=== PATIENT | male | born 1980 | race American Indian/Alaskan Native ===

== ENCOUNTER 2019-03-17 22:06 | Emergency (ER) | payer OTHER ==
[2019-03-17] MEDS ORDERED: AZITHROMYCIN 1 GM ORAL PWDR PACKET PO ONE (23:30)
[2019-03-17] MEDS ORDERED: LIDOCAINE-MPF (1%) 10 MG/1 ML VIAL 5 ML INFILTRATI ONE (23:30)
[2019-03-17] MEDS ORDERED: ACETAMINOPHEN 500 MG TAB PO ONE (23:31)
[2019-03-17] MEDS ORDERED: IBUPROFEN 600 MG TAB PO ONE (23:31)
[2019-03-17] MEDS ORDERED: ONDANSETRON 4 MG ODT TAB PO ONE (23:31)
[2019-03-18 00:06] LABS: Bilirubin,Urine NEG (Negative); Blood,Urine NEG (Negative); Color,Urine Yellow (Yellow); Mucus,Urine FEW /HPF; Protein,Urine <15 mg/dL mg/dL (Negative); Urobilinogen,Urine < 2.0 mg/dL (<2.0)
--- NOTE | 2019-03-18 00:33 | Emergency Department Report ---
ED General Adult HPI - General Chief complaint: Headache Stated complaint: MIGRAIN/BLURRED VISION/IRRITAION IN URINATION Source: patient Mode of arrival: Ambulatory Limitations: No Limitations - History of Present Illness Initial comments: Patient is a 38-year-old male with no past medical history presents to the ED with complaint of acute onset persistent painful swollen and fluctuant or rashes on the scalp for the last 1 month worse in the last 1 week. Patient was complaints of headache as a result of the rashes on his scalp. Patient also complains of dysuria, urinary frequency and urgency, and penile discharge. Patient denies fever, chills, nausea, vomiting, dizziness, syncope, chest pain or shortness of breath, hematuria or testicular pain, abdominal pain, or headache and sore throat. MD Complaint: Painful swollen scalp rashes; Dysuria and penile discharge; headache -: Sudden, month(s) (1) Location: head, genitals Radiation: non-radiation Severity scale (0 -10): 7 Quality: aching, sharp Consistency: constant Improves with: none Worsens with: none Associated Symptoms: denies other symptoms, headaches, rash (diffuse painful swollen maculopapular rashes on the scalp). denies: confusion, chest pain, cough, diaphoresis, fever/chills, loss of appetite, malaise, nausea/vomiting, seizure, shortness of breath, syncope, weakness Treatments Prior to Arrival: none - Related Data Previous Rx's Medication Instructions Recorded Last Taken Type DOXYCYCLINE Hyclate [Vibramycin 100 mg PO Q12HR #28 capsule 03/18/19 Unknown Rx CAP] Ibuprofen [Motrin] 800 mg PO Q8HR PRN #30 tablet 03/18/19 Unknown Rx Sulfamethoxazole/Trimethoprim 1 each PO Q12H #20 tablet 03/18/19 Unknown Rx [Bactrim DS TAB] Allergies Allergy/AdvReac Type Severity Reaction Status Date / Time No Known Allergies Allergy Unverified 03/17/19 22:31 ED Review of Systems ROS: Stated complaint: MIGRAIN/BLURRED VISION/IRRITAION IN URINATION Other details as noted in HPI Constitutional: denies: chills, fever Eyes: denies: eye pain, eye discharge, vision change ENT: denies: ear pain, throat pain Respiratory: denies: cough, shortness of breath, wheezing Cardiovascular: denies: chest pain, palpitations Endocrine: no symptoms reported Gastrointestinal: denies: abdominal pain, nausea, diarrhea Genitourinary: urgency, dysuria, discharge Musculoskeletal: myalgia. denies: back pain, joint swelling, arthralgia Skin: rash (Multiple erythematous maculopapular rashes with tenderness on parietal scalp), change in color. denies: lesions, change in hair/nails, pruritus Neurological: headache. denies: weakness, paresthesias Psychiatric: denies: anxiety, depression Hematological/Lymphatic: denies: easy bleeding, easy bruising ED Past Medical Hx - Past Medical History Previous Medical History?: No - Surgical History Past Surgical History?: No - Social History Smoking Status: Never Smoker Substance Use Type: None - Medications Home Medications: Home Medications Medication Instructions Recorded Confirmed Last Taken Type DOXYCYCLINE Hyclate [Vibramycin 100 mg PO Q12HR #28 capsule 03/18/19 Unknown Rx CAP] Ibuprofen [Motrin] 800 mg PO Q8HR PRN #30 tablet 03/18/19 Unknown Rx Sulfamethoxazole/Trimethoprim 1 each PO Q12H #20 tablet 03/18/19 Unknown Rx [Bactrim DS TAB] ED Physical Exam - General Limitations: No Limitations General appearance: alert, in no apparent distress - Head Head exam: Present: atraumatic, normocephalic, normal inspection, other (palpable tenderness all parietal scalp due to multiple erythematous swollen nonfluctuant rashes) - Eye Eye exam: Present: normal appearance, PERRL, EOMI Pupils: Present: normal accommodation - ENT ENT exam: Present: normal exam, normal orophraynx, mucous membranes moist, TM's normal bilaterally, normal external ear exam - Neck Neck exam: Present: normal inspection, full ROM - Respiratory Respiratory exam: Present: normal lung sounds bilaterally. Absent: respiratory distress, wheezes, rales, chest wall tenderness, accessory muscle use, decreased breath sounds - Cardiovascular Cardiovascular Exam: Present: regular rate, normal rhythm, normal heart sounds. Absent: systolic murmur, diastolic murmur, rubs, gallop - GI/Abdominal GI/Abdominal exam: Present: soft, normal bowel sounds. Absent: tenderness, guarding, hyperactive bowel sounds, hypoactive bowel sounds - Extremities Exam Extremities exam: Present: normal inspection, full ROM, normal capillary refill - Back Exam Back exam: Present: normal inspection, full ROM. Absent: tenderness, muscle spasm, paraspinal tenderness - Neurological Exam Neurological exam: Present: alert, oriented X3, CN II-XII intact, normal gait, reflexes normal - Psychiatric Psychiatric exam: Present: normal affect, normal mood - Skin Skin exam: Present: warm, dry, intact, normal color, rash (multiple erythematous maculopapular nontransient rashes on parietal scalp with tenderness and swelling), erythema, vesicles ED Course Vital Signs 03/17/19 03/17/19 22:16 22:28 Temperature 98.6 F 98.6 F Pulse Rate 89 87 Respiratory 18 20 Rate Blood Pressure 148/101 148/101 O2 Sat by Pulse 97 98 Oximetry ED Medical Decision Making - Medical Decision Making This is a 38-year-old male with no past medical history presented to the ED with dysuria, urinary frequency and urgency, penile discharge as well as painful swollen erythematous maculopapular nonfluctuant rashes on the parietal scalp. In the ED, patient is alert and oriented 3 and is not in distress. Urinalysis shows significant white blood cells in the urine consistent with sexually transmitted disease in the patient's risky sexual lifestyle. Patient was treated in the ED empirically for chlamydia and gonorrhea and discharged home on antibiotics for acute folliculitis. Patient was discharged home on referred to the [facility] Department for further evaluation and testing of STDs. Patient was advised to return to the ED immediately if symptoms get worse. - Differential Diagnosis Folliculitis; Abscess; Cellulitis; STD; UTI Critical care attestation.: If time is entered above; I have spent that time in minutes in the direct care of this critically ill patient, excluding procedure time. ED Disposition Clinical Impression: Acute folliculitis, Cellulitis of scalp, STD (sexually transmitted disease), Urethritis, unspecified, Acute urinary tract infection Disposition: DC-01 TO HOME OR SELFCARE Is pt being admited?: No Does the pt Need Aspirin: No Condition: Stable Instructions: Nonspecific Urethritis in Men (ED), Folliculitis (ED), Cellulitis (ED), Sexually Transmitted Diseases (ED), Safe Sex (ED) Additional Instructions: Take medications with food, drink plenty of fluids and follow-up with the [facility] Department for further evaluation and testing. Return to the ED immediately if symptoms get worse. Prescriptions: Sulfamethoxazole/Trimethoprim [Bactrim DS TAB] 1 each PO Q12H #20 tablet Ibuprofen [Motrin] 800 mg PO Q8HR PRN #30 tablet PRN Reason: Pain , Severe (7-10) DOXYCYCLINE Hyclate [Vibramycin CAP] 100 mg PO Q12HR #28 capsule Referrals: [facility] Depart [Outside] - 3-5 Days Forms: STI Treatment and Prevention Time of Disposition: 00:40 Print Language: LUXEMBOURGISH
[2019-03-18 01:34] VITALS: BP 141/98
== END 2019-03-18 01:32 | disposition home or self-care (01) ==
LOC: ED 22:06
DX: L03.811 Cellulitis of head [any part, except face] (principal); L73.9 Follicular disorder, unspecified; A64 Unspecified sexually transmitted disease; N39.0 Urinary tract infection, site not specified; N34.2 Other urethritis; Z79.899 Other long term (current) drug therapy
CPT/HCPCS: 81001; 87086; 87591; 96372; 99283; J0696; Q0162

== ENCOUNTER 2021-09-16 15:36 | Emergency (ER) | payer OTHER ==
[2021-09-16] MEDS ORDERED: ASPIRIN 325 MG TAB PO ONE (16:02)
--- NOTE | 2021-09-16 16:33 | XRay Report ---
XR chest routine 2V INDICATION / CLINICAL INFORMATION: chest pain. COMPARISON: None available. FINDINGS: SUPPORT DEVICES: None. HEART /PULMONARY VASCULATURE: No significant abnormality. LUNGS / PLEURA: No significant pulmonary or pleural abnormality. No pneumothorax. ADDITIONAL FINDINGS: No significant additional findings. IMPRESSION: 1. No acute findings. Signer Name: Arslan Blue MD Signed: 09/16/2021 4:29 PM Workstation Name: [id number]
[2021-09-16 16:39] LABS: Basophils % (Auto) 0.8 % (0.0-1.8); Eosinophils # (Auto) 0.2 K/mm3 (0.0-0.4); Eosinophils % (Auto) 3.4 % (0.0-4.3); Hematocrit 47.4 % (35.5-45.6); Hemoglobin 15.7 gm/dl (11.8-15.2); Lymphocytes # (Auto) 2.1 K/mm3 (1.2-5.4); Lymphocytes % (Auto) 39.2 % (13.4-35.0); Mean Corpuscular HGB Conc 33 % (32-34); Mean Corpuscular Volume 79 fl (84-94); Monocytes # (Auto) 0.5 K/mm3 (0.0-0.8); Monocytes % (Auto) 9.2 % (0.0-7.3); Platelet Count 128 K/mm3 (140-440); Red Blood Count 5.99 M/mm3 (3.65-5.03); Red Cell Distribution Width 14.1 % (13.2-15.2)
[2021-09-16 17:02] LABS: Alanine Aminotransferase 40 units/L (7-56); Albumin 4.3 g/dL (3.9-5); BUN/Creatinine Ratio 11; Blood Urea Nitrogen 11 mg/dL (9-20); Calcium 9.4 mg/dL (8.4-10.2); Hemolysis Index 7
[2021-09-16] MEDS ORDERED: SODIUM CHLORIDE 0.9% 1000 ML 1,000 ML IV ONE ×2 (20:11→22:10)
[2021-09-16 20:25] LABS: Bilirubin,Urine NEG (Negative); Blood,Urine NEG (Negative); Color,Urine Straw (Yellow); Protein,Urine <15 mg/dL mg/dL (Negative); Urobilinogen,Urine < 2.0 mg/dL (<2.0)
[2021-09-16 20:32] LABS: Bacteria,Urine 1+ /HPF (Negative)
--- NOTE | 2021-09-16 21:05 | Emergency Department Report ---
ED General Adult HPI - General Chief complaint: Chest Pain Stated complaint: CHEST PAIN,BURNING URINE X 3 DAYS Time Seen by Provider: 09/16/21 20:03 Source: patient Mode of arrival: Ambulatory Limitations: No Limitations - History of Present Illness Initial comments: Pt Is a 41-year-old male with history of obesity, who presents for right lower chest pain for 1 year and more recent urinary frequency urgency urgency and dysuria times the past week. Patient denies fevers or chills there is no hematuria. Patient endorses no concern for STI. Patient has no history of renal stones. Patient denies history of hypertension or diabetes. - Related Data Previous Rx's Medication Instructions Recorded Last Taken Type Ibuprofen [Motrin] 800 mg PO Q8HR PRN #30 tablet 03/18/19 Unknown Rx Sulfamethoxazole/Trimethoprim 1 each PO Q12H #20 tablet 03/18/19 Unknown Rx [Bactrim DS TAB] DOXYCYCLINE Hyclate [Vibramycin 100 mg PO BID 7 Days #14 capsule 09/17/21 Unknown Rx CAP] metFORMIN [Glucophage] 500 mg PO BID #30 tab 09/17/21 Unknown Rx Allergies Allergy/AdvReac Type Severity Reaction Status Date / Time No Known Allergies Allergy Verified 09/16/21 20:04 ED Review of Systems ROS: Stated complaint: CHEST PAIN,BURNING URINE X 3 DAYS Other details as noted in HPI Constitutional: denies: chills, fever Eyes: denies: eye pain, eye discharge, vision change ENT: denies: ear pain, throat pain Respiratory: denies: cough, shortness of breath, wheezing Cardiovascular: chest pain. denies: palpitations, dyspnea on exertion, edema, paroxysmal nocturnal dyspnea Endocrine: no symptoms reported Gastrointestinal: denies: abdominal pain, nausea, vomiting, diarrhea Genitourinary: urgency, dysuria, frequency. denies: hematuria, discharge, testicular pain, testicular mass Musculoskeletal: denies: back pain, joint swelling, arthralgia Skin: denies: rash, lesions Neurological: denies: headache, weakness, paresthesias Psychiatric: denies: anxiety, depression Hematological/Lymphatic: denies: easy bleeding, easy bruising ED Past Medical Hx - Social History Smoking Status: Never Smoker Substance Use Type: None - Medications Home Medications: Home Medications Medication Instructions Recorded Confirmed Last Taken Type Ibuprofen [Motrin] 800 mg PO Q8HR PRN #30 tablet 03/18/19 Unknown Rx Sulfamethoxazole/Trimethoprim 1 each PO Q12H #20 tablet 03/18/19 Unknown Rx [Bactrim DS TAB] DOXYCYCLINE Hyclate [Vibramycin 100 mg PO BID 7 Days #14 capsule 09/17/21 Unknown Rx CAP] metFORMIN [Glucophage] 500 mg PO BID #30 tab 09/17/21 Unknown Rx ED Physical Exam - General Limitations: No Limitations General appearance: alert, in no apparent distress - Head Head exam: Present: atraumatic, normocephalic - Eye Eye exam: Present: EOMI Pupils: Present: normal accommodation - ENT ENT exam: Present: mucous membranes moist - Neck Neck exam: Present: normal inspection, full ROM. Absent: tenderness, lymphadenopathy - Respiratory Respiratory exam: Present: normal lung sounds bilaterally. Absent: respiratory distress, wheezes, stridor, chest wall tenderness - Cardiovascular Cardiovascular Exam: Present: regular rate, normal rhythm, normal heart sounds. Absent: systolic murmur, diastolic murmur, rubs, gallop - GI/Abdominal GI/Abdominal exam: Present: soft, normal bowel sounds. Absent: distended, tenderness, guarding, rebound, rigid, bruit, hernia - Rectal Rectal exam: Present: deferred - Extremities Exam Extremities exam: Present: normal inspection, full ROM, normal capillary refill. Absent: tenderness, pedal edema - Back Exam Back exam: Present: normal inspection, full ROM. Absent: CVA tenderness (R), CVA tenderness (L) - Neurological Exam Neurological exam: Present: alert, oriented X3, CN II-XII intact, normal gait - Expanded Neurological Exam Expanded Patient oriented to: Present: person, place, time Speech: Present: fluid speech Best Eye Response (Sindy): (4) open spontaneously Best Motor Response (Sindy): (6) obeys commands Best Verbal Response (Sindy): (5) oriented [place] Total: 15 - Psychiatric Psychiatric exam: Present: normal affect, normal mood - Skin Skin exam: Present: warm, dry, intact, normal color. Absent: rash ED Course Vital Signs 09/16/21 15:59 Temperature 98 F Pulse Rate 95 H Respiratory 16 Rate Blood Pressure 135/91 [Left] O2 Sat by Pulse 95 Oximetry ED Medical Decision Making - Lab Data Result diagrams: 09/16/21 16:29 09/16/21 16:29 Labs 09/16/21 09/16/21 09/16/21 16:29 16:29 19:25 WBC 5.4 RBC 5.99 H Hgb 15.7 H Hct 47.4 H MCV 79 L MCH 26 L MCHC 33 RDW 14.1 Plt Count 128 L Lymph % (Auto) 39.2 H [place] % (Auto) 9.2 H Eos % (Auto) 3.4 Baso % (Auto) 0.8 Lymph # (Auto) 2.1 [place] # (Auto) 0.5 Eos # (Auto) 0.2 Baso # (Auto) 0.0 Seg Neutrophils % 47.4 Seg Neutrophils # 2.6 Sodium 134 L Potassium 4.1 Chloride 99.0 Carbon Dioxide 23 Anion Gap 16 BUN 11 Creatinine 1.0 Estimated GFR > 60 BUN/Creatinine Ratio 11 Glucose 348 H POC Glucose Calcium 9.4 Total Bilirubin 0.40 AST 22 ALT 40 Alkaline Phosphatase 180 H Troponin T < 0.010 < 0.010 Total Protein 7.2 Albumin 4.3 Albumin/Globulin Ratio 1.5 Urine Color Urine Turbidity Urine pH Ur Specific [place] Urine Protein Urine Glucose (UA) Urine Ketones Urine Blood Urine Nitrite Urine Bilirubin Urine Urobilinogen Ur Leukocyte Esterase Urine WBC (Auto) Urine RBC (Auto) U Epithel Cells (Auto) Urine Bacteria (Auto) 09/16/21 09/16/21 22:07 Unknown WBC RBC Hgb Hct MCV MCH MCHC RDW Plt Count Lymph % (Auto) [place] % (Auto) Eos % (Auto) Baso % (Auto) Lymph # (Auto) [place] # (Auto) Eos # (Auto) Baso # (Auto) Seg Neutrophils % Seg Neutrophils # Sodium Potassium Chloride Carbon Dioxide Anion Gap BUN Creatinine Estimated GFR BUN/Creatinine Ratio Glucose POC Glucose 427 H Calcium Total Bilirubin AST ALT Alkaline Phosphatase Troponin T Total Protein Albumin Albumin/Globulin Ratio Urine Color Straw Urine Turbidity Clear Urine pH 5.0 Ur Specific [place] 1.036 H Urine Protein <15 mg/dl Urine Glucose (UA) >=500 Urine Ketones Tr Urine Blood Neg Urine Nitrite Neg Urine Bilirubin Neg Urine Urobilinogen < 2.0 Ur Leukocyte Esterase Tr Urine WBC (Auto) 3.0 Urine RBC (Auto) 1.0 U Epithel Cells (Auto) < 1.0 Urine Bacteria (Auto) 1+ - EKG Data EKG shows normal: sinus rhythm, axis, intervals, QRS complexes, ST-T waves Rate: normal - EKG Data When compared to previous EKG there are: previous EKG unavailable Interpretation: normal EKG (Normal sinus rhythm no ST elevated [place] interpreted by ED attending.) - Radiology Data Radiology results: report reviewed, image reviewed XR chest routine 2V INDICATION / CLINICAL INFORMATION: chest pain. COMPARISON: None available. FINDINGS: SUPPORT DEVICES: None. HEART /PULMONARY VASCULATURE: No significant abnormality. LUNGS / PLEURA: No significant pulmonary or pleural abnormality. No pneumothorax. ADDITIONAL FINDINGS: No significant additional findings. IMPRESSION: 1. No acute findings. Signer Name: Mic Yoder MD Signed: 09/16/2021 4:29 PM Workstation Name: [id number] Transcribed By: HANK Dictated By: MIC YODER MD Electronically Authenticated By: MIC YODER MD Signed Date/Time: 09/16/211628 DD/ 28 TD/TT: - Medical Decision Making Pt Is a 41-year-old male with history of obesity, who presents for right lower chest pain for 1 year and more recent urinary frequency urgency urgency and dysuria times the past week. Patient denies fevers or chills there is no hematuria. Patient endorses no concern for STI. Patient has no history of renal stones. Patient denies history of hypertension or diabetes. Heart score is 0. MAURIZIO score is 0. EKG normal sinus rhythm no ST elevated [place] interpreted by ED attending. Chest x-ray normal no infiltrates no opacities. Labs noted as above concerning for glucose at 3 4 8 mg a deciliter. Plan normal saline 1 L IV x1 await UA results. Recheck Accu-Chek after IV fluids completion. Noted Accu-Chek at 427, patient given second liter normal saline, Insulin 7 units IV, venous PH, will recheck after slightly but still elevated will admit for Onset diabetes, Repeat Accu-Chek 249 mg/dl, pt states he feels much better now. Plan given elevated blood glucose we will start metformin p.o. twice daily have discussed this with patient possibility of new onset diabetes. However there are no polys. No nausea no vomiting no fever no chills. Intermittent chest pain in 1 year and not likely relevant to symptoms. EKG is normal sinus rhythm no ST elevated [place] interpreted by ED attending, troponins are negative. Heart score 0. DC to home, take medications as prescribed, follow-up with primary care doctor in 2 to 3 days. Return to emergency department should symptoms worsen. Patient verbalized agreement and understanding of discharge plan. Patient DC'd home in stable condition at this time. Critical care attestation.: If time is entered above; I have spent that time in minutes in the direct care of this critically ill patient, excluding procedure time. ED Disposition Clinical Impression: Dysuria, Hyperglycemia Disposition: HOME / SELF CARE / HOMELESS Is pt being admited?: No Does the pt Need Aspirin: No Condition: Stable Instructions: Screening for Type 2 Diabetes, Dysuria Additional Instructions: Take medications as prescribed. Follow-up primary care doctor in 1 to 2 days. Return to emergency department should symptoms worsen. Prescriptions: metFORMIN [Glucophage] 500 mg PO BID #30 tab DOXYCYCLINE Hyclate [Vibramycin CAP] 100 mg PO BID 7 Days #14 capsule Referrals: DHARA HERBERT MD [Staff Physician] - 3-5 Days Forms: Work/School Release Form(ED) Time of Disposition: 00:53
[2021-09-16] MEDS ORDERED: cefTRIAXone/NS 1 GM/50 ML 1 GM/50 ML BAG IV ONE (22:10)
[2021-09-16] MEDS ORDERED: INSULIN REGULAR, HUMAN 100 UNITS/1 ML IV ONE ×2 (22:10→22:24)
[2021-09-17 01:14] VITALS: BP 138/93
--- NOTE | 2021-09-17 11:27 | Electrocardiograph Report ---
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
== END 2021-09-17 02:34 | disposition home or self-care (01) ==
LOC: ED 15:36
DX: R30.0 Dysuria (principal); R73.9 Hyperglycemia, unspecified; Z79.899 Other long term (current) drug therapy
CPT/HCPCS: 36415; 71046; 80053; 81001; 82805; 82962; 84484; 85025; 93005; 96361; 96365; 96375; 99284; J0696; J7030; Q9967; J1815